=== PATIENT | female | born 2005 | race Caucasian/White ===

== ENCOUNTER 2025-02-19 09:50 | Emergency (ER) | payer SELFPAY ==
[2025-02-19 10:23] VITALS: TEMP 97.8
--- NOTE | 2025-02-19 10:41 | ERPHSYRPT ---
- History of Present Illness Time Seen by Provider: 02/19/25 10:40 Historian: patient Patient Subjective Stated Complaint: I woke up in extreme pain to my back and stomach, I have urinary frequency and burning, I am having sweaty hands, and no appetite with weight loss. Triage Nursing Assessment: Patient ambulated back to cot, gait stable, skin pink, warm, and dry. vitals, wnl. pain 5/10 to back and lower abdomen. Abd hurts with palpation. LBM 02/18/25. Physician History: This is a 19-year-old white female patient who arrives by private vehicle secondary to bilateral flank pain and lower abdominal pain that has been present intermittently for a week. Patient's primary care provider is nurse practitioner Terrence. Patient states he has had associated weight loss of approximately 7 to 8 pounds. This morning, she woke up to more severe flank and superior pubic pain. She has associated urinary frequency and mild burning as well as sweaty hands. Patient states that she does not want a CAT scan performed because she gets too anxious when she is in these types of scanning studies. She does agree to urinalysis, blood work and intravenous fluids. Quality: burning, sharpness Abdominal Pain Onset Location: suprapubic Pain Radiation: flank (Bilateral) Severity of Pain-Max: moderate Severity of Pain-Current: mild (To moderate) Modifying Factors: Improves With: nothing Associated Symptoms: loss of appetite, nausea, No vomiting Previous symptoms: no prior history, no recent treatment Allergies/Adverse Reactions: No Known Drug Allergies Allergy (Verified 02/19/25 10:18) Home Medications: Adapalene TOP QPM 02/19/25 [History] Hx Tetanus, Diphtheria Vaccination/Date Given: Yes Hx Influenza Vaccination/Date Given: No Hx Pneumococcal Vaccination/Date Given: No Immunizations Up to Date: Yes Travel Risk - International Travel Have you traveled outside of the country in past 3 weeks: No - Emerging Infectious Disease Are you exhibiting symptoms associated with any current EIDs: Yes Symptoms: Abdominal Pain - Review of Systems Constitutional: No Symptoms Eyes: No Symptoms Ears, Nose, & Throat: No Symptoms Respiratory: No Symptoms Cardiac: No Symptoms Abdominal/Gastrointestinal: Abdominal Pain, Nausea, Appetite Changes Genitourinary Symptoms: No Symptoms Musculoskeletal: No Symptoms Skin: No Symptoms Neurological: No Symptoms Psychological: No Symptoms Endocrine: No Symptoms Hematologic/Lymphatic: No Symptoms Immunological/Allergic: No Symptoms All Other Systems: Reviewed and Negative - Past Medical History Pertinent Past Medical History: Yes Neurological History: No Pertinent History ENT History: No Pertinent History Cardiac History: No Pertinent History Respiratory History: No Pertinent History Endocrine Medical History: No Pertinent History Musculoskeletal History: No Pertinent History GI Medical History: No Pertinent History History: No Pertinent History Psycho-Social History: No Pertinent History Female Reproductive Disorders: No Pertinent History - Past Surgical History Past Surgical History: Yes Neuro Surgical History: No Pertinent History Cardiac: No Pertinent History Respiratory: No Pertinent History Gastrointestinal: No Pertinent History Genitourinary: No Pertinent History Musculoskeletal: Orthopedic Surgery Female Surgical History: No Pertinent History Other Surgical History: Right shoulder - Female History Hx Last Menstrual Period: 01/17/25 Hx Now: No - Social History Smoking Status: Never smoker Drug Use: none - Social Determinants of Health Will the patient participate in the screening: Declined to provide - Nursing Vital Signs Nursing Vital Signs: Initial Vital Signs Temperature 97.8 F 02/19/25 09:51 Pulse Rate 100 H 02/19/25 09:51 Respiratory Rate 20 02/19/25 09:51 Blood Pressure 112/71 02/19/25 09:51 O2 Sat by Pulse Oximetry 99 02/19/25 09:51 Pain Scale Pain Intensity 5 - Physical Exam General Appearance: no apparent distress, alert, anxiety Eye Exam: PERRL/EOMI, eyes nml inspection Ears, Nose, Throat Exam: normal ENT inspection, moist mucous membranes Neck Exam: normal inspection, non-tender, supple, full range of motion Respiratory Exam: normal breath sounds, lungs clear, airway intact, No chest tenderness, No respiratory distress Cardiovascular Exam: regular rate/rhythm, normal heart sounds, normal peripheral pulses Gastrointestinal/Abdomen Exam: soft, normal bowel sounds, tenderness (Mild suprapubic tenderness to palpation), guarding (Mild to palpation), No rebound Pelvic Exam: not done Rectal Exam: not done Back Exam: normal inspection, normal range of motion, No CVA tenderness, No vertebral tenderness Extremity Exam: normal inspection, normal range of motion, pelvis stable Neurologic Exam: alert, oriented x 3, cooperative, 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 as tested, normal mood/affect, nml cerebellar function, nml station & gait, sensation nml Skin Exam: normal color, warm, dry Lymphatic Exam: No adenopathy SpO2 Interpretation: normal SpO2: 99 O2 Delivery: Room Air - Course Nursing assessment & vital signs reviewed: Yes Ordered Tests: Active Orders 24 hr Category Date Time Status IV Insertion STAT Care 02/19/25 11:19 Active AMYLASE Stat Lab 02/19/25 11:25 Completed CBC W DIFF Stat Lab 02/19/25 11:25 Completed CMP Stat Lab 02/19/25 11:25 Completed HCG QUALITATIVE, SERUM Stat Lab 02/19/25 11:25 Completed HCG QUALITATIVE, URINE Stat Lab 02/19/25 10:45 Completed LIPASE Stat Lab 02/19/25 11:25 Completed Lactic Acid Stat Lab 02/19/25 11:45 Completed UA W/RFX UR CULTURE Stat Lab 02/19/25 10:45 Completed Medication Summary Discontinued Medications Generic Name Dose Route Start Last Admin Trade Name Freq PRN Reason Stop Dose Admin Sodium Chloride 1,000 mls @ 999 mls/hr 02/19/25 11:19 02/19/25 11:51 Sodium Chloride 0.9% 1000 Ml IV 02/19/25 12:19 999 mls/hr .Q1H1M STA Administration Sodium Chloride Confirm 02/19/25 11:49 Sodium Chloride 0.9% 1000 Ml Administered 02/19/25 11:50 Dose 1,000 mls @ ud .ROUTE .STK-MED ONE Lab/Rad Data: Laboratory Result Diagrams 02/19/25 11:25 02/19/25 11:25 Laboratory Results 02/19/25 02/19/25 02/19/25 Range/Units 11:45 11:25 11:25 WBC (3.98-10.04) x10^3/uL RBC (3.93-5.22) x10^6/uL Hgb (11.2-15.7) g/dL Hct (34.1-44.9) % MCV (79.4-94.8) fL MCH (25.6-32.2) pg MCHC (32.2-35.5) g/dL RDW (11.7-14.4) % Plt Count (182-369) x10^3/uL MPV (9.4-12.3) fL Gran % (34.0-71.1) % Immature Gran % (Auto) (0.001-0.429) % Nucleat RBC Rel Count (0.00-0.2) % Eos # (Auto) (0.04-0.36) x10^3/uL Immature Gran # (Auto) (0.001-0.031) x10^3u/L Absolute Lymphs (auto) (1.18-3.74) x10^3/uL Absolute Monos (auto) (0.24-0.86) x10^3/uL Absolute Nucleated RBC (0.00-0.012) x10^3u/L Lymphocytes % (19.3-51.7) % Monocytes % (4.7-12.5) % Eosinophils % (0.7-5.8) % Basophils % (0.1-1.2) % Absolute Granulocytes (1.56-6.13) x10^3/uL Basophils # (0.01-0.08) x10^3/uL Sodium 141 (135-145) mmol/L Potassium 3.6 (3.5-5.1) mmol/L Chloride 109 H (98-107) mmol/L Carbon Dioxide 21 L (22-30) mmol/L Anion Gap 14.1 (5-15) MEQ/L BUN 6 L (7-17) mg/dL Creatinine 0.62 (0.52-1.04) mg/dL Estimated GFR 131.5 ML/MIN Glucose 92 (74-106) mg/dL Lactic Acid 1.0 (0.4-2.0) Calcium 9.7 (8.4-10.2) mg/dL Total Bilirubin 1.60 H (0.2-1.3) mg/dL AST 27 (14-36) U/L ALT 13 (0-35) U/L Alkaline Phosphatase 87 (38-126) U/L Serum Total Protein 8.9 H (6.3-8.2) g/dL Albumin 5.1 H (3.5-5.0) g/dL Amylase 65 (30-110) U/L Lipase 59 (23-300) U/L Serum HCG, Qual NEGATIVE (NEGATIVE) Urine Color (Yellow) Urine Appearance (Clear) Urine pH (4.6-8.0) Ur Specific [place] (1.005-1.030) Urine Protein (Negative) Urine Glucose (UA) (Negative) mg/dL Urine Ketones (Negative) Urine Blood (Negative) Urine Nitrite (Negative) Urine Bilirubin (Negative) Urine Urobilinogen (0.2) mg/dL Ur Leukocyte Esterase (Negative) U Hyaline Cast (Auto) (0-2) /LPF Urine Microscopic RBC (0-5) /HPF Urine Microscopic WBC (0-5) /HPF Ur Epithelial Cells (None Seen) /HPF Urine Bacteria (None Seen) /HPF Urine Culture Reflexed (NO) Urine HCG, Qual (NEGATIVE) 02/19/25 02/19/25 02/19/25 Range/Units 11:25 10:45 10:45 WBC 6.1 (3.98-10.04) x10^3/uL RBC 4.32 (3.93-5.22) x10^6/uL Hgb 13.0 (11.2-15.7) g/dL Hct 39.1 (34.1-44.9) % MCV 90.5 (79.4-94.8) fL MCH 30.1 (25.6-32.2) pg MCHC 33.2 (32.2-35.5) g/dL RDW 12.4 (11.7-14.4) % Plt Count 294 (182-369) x10^3/uL MPV 10.7 (9.4-12.3) fL Gran % 54.8 (34.0-71.1) % Immature Gran % (Auto) 0.3 (0.001-0.429) % Nucleat RBC Rel Count 0.0 (0.00-0.2) % Eos # (Auto) 0.03 L (0.04-0.36) x10^3/uL Immature Gran # (Auto) 0.02 (0.001-0.031) x10^3u/L Absolute Lymphs (auto) 2.19 (1.18-3.74) x10^3/uL Absolute Monos (auto) 0.48 (0.24-0.86) x10^3/uL Absolute Nucleated RBC 0.00 (0.00-0.012) x10^3u/L Lymphocytes % 35.8 (19.3-51.7) % Monocytes % 7.9 (4.7-12.5) % Eosinophils % 0.5 L (0.7-5.8) % Basophils % 0.7 (0.1-1.2) % Absolute Granulocytes 3.35 (1.56-6.13) x10^3/uL Basophils # 0.04 (0.01-0.08) x10^3/uL Sodium (135-145) mmol/L Potassium (3.5-5.1) mmol/L Chloride (98-107) mmol/L Carbon Dioxide (22-30) mmol/L Anion Gap (5-15) MEQ/L BUN (7-17) mg/dL Creatinine (0.52-1.04) mg/dL Estimated GFR ML/MIN Glucose (74-106) mg/dL Lactic Acid (0.4-2.0) Calcium (8.4-10.2) mg/dL Total Bilirubin (0.2-1.3) mg/dL AST (14-36) U/L ALT (0-35) U/L Alkaline Phosphatase (38-126) U/L Serum Total Protein (6.3-8.2) g/dL Albumin (3.5-5.0) g/dL Amylase (30-110) U/L Lipase (23-300) U/L Serum HCG, Qual (NEGATIVE) Urine Color Yellow (Yellow) Urine Appearance Clear (Clear) Urine pH 6.0 (4.6-8.0) Ur Specific [place] 1.015 (1.005-1.030) Urine Protein Negative (Negative) Urine Glucose (UA) Negative (Negative) mg/dL Urine Ketones 15 A (Negative) Urine Blood Negative (Negative) Urine Nitrite Negative (Negative) Urine Bilirubin Negative (Negative) Urine Urobilinogen 1.0 A (0.2) mg/dL Ur Leukocyte Esterase Negative (Negative) U Hyaline Cast (Auto) NONE SEEN (0-2) /LPF Urine Microscopic RBC 0-2 (0-5) /HPF Urine Microscopic WBC 6-10 A (0-5) /HPF Ur Epithelial Cells Moderate A (None Seen) /HPF Urine Bacteria Rare A (None Seen) /HPF Urine Culture Reflexed NO (NO) Urine HCG, Qual NEGATIVE (NEGATIVE) - Progress Progress: unchanged, re-examined Progress Note: 02/19/25 11:39 My medical decision making and the assignment of moderate complexity of this patient's medical issue today is based on review the patient's past medical history, reviewed the patient's medication list, reviewed the patient drug allergy list, history of present illness and physical findings on examination. The workup in this patient includes the offering of CT scan of the abdomen pelvis without contrast (patient refuses), CBC, CMP, urinalysis, test, amylase, lipase, lactic acid level, infusion of normal saline solution. Differential diagnosis includes was not limited to acute appendicitis, pancreatitis, colitis, pyelonephritis, ureterolithiasis The patient is refusing CT scan of the abdomen pelvis without contrast because she gets too anxious in the studies. She will sign a refusal of test form 02/19/25 12:45 I interpreted the patient's laboratory data results. Based on the laboratory data results, there are no acute, emergent medical issues. The patient still refuses CT scan of the abdomen and pelvis without contrast. Counseled pt/family regarding: lab results, diagnosis, need for follow-up Medical Desision Making - Diagnostic Testing Diagnostic test were ordered, analyzed, and reviewed by me: Yes - Risk of complications Low Risk: Low risk of morbidity from additional dx testing or treatment - Departure Departure Disposition: Home Clinical Impression: Abdominal pain, Flank pain Condition: Stable Critical Care Time: No Referrals: ARIA EMANUEL NP [Primary Care Provider, [facility]] - Follow up/PCP as directed Additional Instructions: Drink plenty of clear liquids before advancing your diet. Avoid fatty greasy spicy foods. Call your primary care provider on 02/21/2025, to make arrangements for follow-up appointment for further evaluation and management.
[2025-02-19 10:49] LABS: HCG URINE TEST NEGATIVE (NEGATIVE)
[2025-02-19 10:55] LABS: Glucose, Urine Negative (Negative); Protein,Urine Dip Negative (Negative); RBC 0-2 /HPF (0-5)
[2025-02-19 11:57] LABS: BASOPHIL % 0.7 % (0.1-1.2); Basophil (Absolute #) 0.04 x10^3/uL (0.01-0.08); Eosinophil (Absolute #) 0.03 x10^3/uL (0.04-0.36); Hematocrit 39.1 % (34.1-44.9); Hemoglobin 13.0 g/dL (11.2-15.7); IMMATURE GRAN # 0.02 x10^3u/L (0.001-0.031); IMMATURE GRAN % 0.3 % (0.001-0.429); Lymphocyte (Absolute #) 2.19 x10^3/uL (1.18-3.74); Mean Corpuscular Hemoglobin 30.1 pg (25.6-32.2); Mean Corpuscular Hgb Concent. 33.2 g/dL (32.2-35.5); Monocyte (Absolute #) 0.48 x10^3/uL (0.24-0.86); NUCLEATED RBC # 0.00 x10^3u/L (0.00-0.012); NUCLEATED RBC % 0.0 % (0.00-0.2); Platelet Count 294 x10^3/uL (182-369); Red Blood Count 4.32 x10^6/uL (3.93-5.22); White Blood Count 6.1 x10^3/uL (3.98-10.04)
[2025-02-19 12:12] LABS: Calcium 9.7 mg/dL (8.4-10.2); Carbon Dioxide 21.0 mmol/L (22-30); Creatinine 1 0.62 mg/dL (0.52-1.04); EST GLOMERULAR FILTRATION RATE 131.5 ML/MIN; Glucose 92.0 mg/dL (74-106); HCG SERUM TEST NEGATIVE (NEGATIVE); Potassium 3.6 mmol/L (3.5-5.1); SGOT/AST 27.0 U/L (14-36); SGPT/ALT 13.0 U/L (0-35); Total Protein 8.9 g/dL (6.3-8.2)
[2025-02-19 13:46] VITALS: BP 108/65; PULSE 74; RESP 20; O2SAT 98
== END 2025-02-19 13:47 | disposition home or self-care (01) ==
LOC: ED 09:50
DX: R10.30 Lower abdominal pain, unspecified (principal); R35.0 Frequency of micturition; R30.0 Dysuria; Z79.899 Other long term (current) drug therapy